=== PATIENT | male | born 1985 | race Caucasian/White ===

== ENCOUNTER 2018-01-17 12:42 | Emergency (ER) | payer BC ==
[~2018-01-17] VITALS: Ht 170.2 cm; Wt 85.5 kg
[2018-01-17 12:46] VITALS: TEMP 99.4
[2018-01-17 13:02] LABS: BASO # 0.1 (0.0-0.2); BASO % 0.9 % (0.0-2.0); EOS # 0.1 (0.0-0.7); EOS % 1.2 % (0-4.0); GRAN # 4.6 (1.4-6.5); HEMATOCRIT 39.5 % (42.0-52.0); HEMOGLOBIN 14.1 g/dl (13.5-18.0); LYMPH # 1.7 (1.2-3.4); LYMPH % 24.8 % (20.0-51.0); MEAN CELL VOLUME 84 fl (80.0-100.0); MEAN CORPUSCULAR HEMOGLOBIN 30 pg (27.0-31.0); MEAN CORPUSCULAR HGB CONC 36 g/dl (33.0-37.0); MEAN PLATELET VOLUME 8.5 fl (7.4-10.4); MONO # 0.4 (0.1-0.6); MONO % 6.2 % (1.7-9.3); PLATELET COUNT 221 K/mm3 (130-400); RED BLOOD COUNT 4.73 M/mm3 (4.20-5.60); REDCELL DISTRIBUTION WIDTH-CV 14.6 % (11.5-14.5)
[2018-01-17 13:11] LABS: ALBUMIN 4.9 gm/dL (3.5-5.0); BILIRUBIN,TOTAL 1.6 mg/dL (0.0-1.0); CALCIUM 9.1 mg/dL (8.4-10.2); CREATININE, serum 1.01 mg/dL (0.66-1.25); POTASSIUM 4.2 mmol/L (3.4-5.0); TOTAL PROTEIN 8.4 gm/dL (6.4-8.2)
[2018-01-17 14:46] LABS: COLLECTION METHOD CLEAN CATCH
[2018-01-17 14:52] LABS: MUCOUS Present /lpf; PH 5 (5-8); SQUAMOUS EPITHELIAL None Seen /hpf; URINE APPEARANCE Clear; URINE BACTERIA None Seen /hpf; URINE BILIRUBIN Negative (NEGATIVE); URINE BLOOD Negative (NEGATIVE); URINE COLOR Yellow; URINE GLUCOSE Negative (NEGATIVE); URINE KETONE Negative (NEGATIVE); URINE LEUKOCYTE ESTERASE Negative (NEGATIVE); URINE NITRATE Negative (NEGATIVE); URINE PROTEIN(semi-quant) Negative (NEGATIVE); URINE RBC None Seen /hpf; URINE UROBILINOGEN Negative (NEGATIVE)
[2018-01-17 15:23] VITALS: BP 113/67; PULSE 66
== END 2018-01-17 15:24 | disposition home or self-care (01) ==
LOC: COL.ER 12:42
PROVIDERS: Emergency Medicine
DX: R10.31 Right lower quadrant pain (principal); R19.7 Diarrhea, unspecified; R11.10 Vomiting, unspecified
CPT/HCPCS: J2765; J3010; J7030; Q9967

== ENCOUNTER 2019-07-20 05:30 | Emergency (ER) | payer SELFPAY ==
[~2019-07-20] VITALS: Ht 170.2 cm; Wt 79.5 kg
[2019-07-20 05:38] VITALS: TEMP 97.8
[2019-07-20 07:00] VITALS: BP 115/76; PULSE 83
== END 2019-07-20 07:00 | disposition home or self-care (01) ==
LOC: COL.ER 05:30
DX: S90.31XA Contusion of right foot, initial encounter (principal); W01.0XXA Fall on same level from slipping, tripping and stumbling without subsequent striking against object, initial encounter; Y92.69 Other specified industrial and construction area as the place of occurrence of the external cause